=== PATIENT | male | born 1975 | race Caucasian/White ===

== ENCOUNTER 2020-11-04 11:47 | Emergency (ER) | payer OTHER ==
[2020-11-04 12:02] VITALS: TEMP 98.1
[2020-11-04] MEDS ORDERED: DIPH,PERTUS(ACELL)TETVAC-LF 0.5 ML VIAL IM ONE (12:12)
[2020-11-04] MEDS ORDERED: LIDOCAINE 1% INJ 10MG/ML (20 ML MDV) SQ ONE (12:12)
[2020-11-04] MEDS ORDERED: BACITRACIN OINT 1 EACH PACKET TOPICAL ONE (12:36)
--- NOTE | 2020-11-04 12:38 | ED ---
General Adult HPI - General Chief complaint: Wound/Laceration Stated complaint: [facility] - finger lac Time Seen by Provider: 11/04/20 12:09 Source: patient, RN notes reviewed, old records reviewed Mode of arrival: ambulatory Limitations: no limitations - History of Present Illness Initial comments: 45-year-old male presenting with laceration to the third digit left hand. Patient was at work, cutting up chicken with a clean sharp knife. He cut the tip of his third finger left hand. No other injury. Tetanus status is unknown. - Related Data Allergies Allergy/AdvReac Type Severity Reaction Status Date / Time No Known Allergies Allergy Verified 11/04/20 12:00 Review of Systems ROS Statement: Those systems with pertinent positive or pertinent negative responses have been documented in the HPI. ROS Other: All systems not noted in ROS Statement are negative. Past Medical History Past Medical History: No Reported History History of Any Multi-Drug Resistant Organisms: None Reported Past Surgical History: No Surgical Hx Reported Past Psychological History: No Psychological Hx Reported Smoking Status: Current every day smoker Past Alcohol Use History: None Reported Past Drug Use History: None Reported General Exam Limitations: no limitations General appearance: alert, in no apparent distress Head exam: Present: atraumatic, normocephalic Eye exam: Present: normal appearance, PERRL ENT exam: Present: normal exam Neck exam: Present: normal inspection. Absent: tenderness, meningismus Respiratory exam: Present: normal lung sounds bilaterally. Absent: respiratory distress, wheezes Cardiovascular Exam: Present: regular rate, normal rhythm GI/Abdominal exam: Absent: distended Extremities exam: Present: normal capillary refill, other (2 cm laceration to the lateral distal tip of the third digit. This does extend partially into the nailbed. It does not involve eponychia. There is minimal bleeding.) Course Vital Signs 11/04/20 12:00 Temperature 98.1 F Pulse Rate 50 L Respiratory 18 Rate Blood Pressure 113/89 O2 Sat by Pulse 98 Oximetry Procedures - Laceration Laceration #1 Consent Obtained: verbal consent Indication: laceration Site: hand Size (cm): 2 Description: linear, avulsion Depth: [id number] Anesthetic Used: lidocaine 1% Anesthesia Technique: nerve block Pre-repair: wound explored, irrigated extensively Type of Sutures: nylon Size of Sutures: 4-0 Number of Sutures: 4 Technique: simple, interrupted Patient Tolerated Procedure: well Additional Comments: The distal tip of the nail was removed and nailbed was sutured - Nerve Block Consent Obtained: verbal consent Local Anesthetic Used: Lidocaine 1% Amount of anesthesia used: 5 Side: left Nerve Blocks: digital Procedure Successful: Yes Complications: none Patient Tolerated Procedure: well Medical Decision Making - Medical Decision Making 45-year-old male otherwise healthy presenting with a laceration to the distal tip of the third digit left hand. This was repaired with nylon suture. It was initially irrigated extensively with tap water. Bacitracin ointment applied and dressing applied and the emergency department. Patient will monitor for signs of infection and return for suture removal in 10-14 days. Disposition Clinical Impression: Laceration Disposition: HOME SELF-CARE Condition: Good Instructions (If sedation given, give patient instructions): Care For Your Stitches (ED), Laceration (ED) Additional Instructions: His change dressing daily. Please apply antibiotic ointment. Please return for suture removal in 10-14 days. Please return with any concern for infection. Is patient prescribed a controlled substance at d/c from ED?: No Referrals: None,Stated [Primary Care Provider] - 1-2 days Time of Disposition: 12:37
[2020-11-04 12:59] VITALS: BP 116/88; PULSE 58; RESP 20
== END 2020-11-04 12:50 | disposition home or self-care (01) ==
LOC: EC 11:47
DX: S61.213A Laceration without foreign body of left middle finger without damage to nail, initial encounter (principal); Z23 Encounter for immunization; F17.200 Nicotine dependence, unspecified, uncomplicated; W26.0XXA Contact with knife, initial encounter
CPT/HCPCS: 99282; 12001; 90471; 90715; J2001